=== PATIENT | male | born 1965 | race Caucasian/White ===

== ENCOUNTER 2018-01-12 01:14 | Emergency (ER) | payer BC ==
[2018-01-12] MEDS ORDERED: Albuterol/Ipratropium 3.0-0.5 MG/3 ML Neb Soln NEB ONE (02:17)
--- NOTE | 2018-01-12 02:17 | EDM.PDOC ---
ED HPI GENERAL MEDICAL PROBLEM - General Chief Complaint: Respiratory Problem Stated Complaint: DIFFICULTY BREATHING BAD COUGH Time Seen by Provider: 01/12/18 01:24 Source of Information: Reports: Patient, RN Notes Reviewed History Limitations: Reports: No Limitations - History of Present Illness INITIAL COMMENTS - FREE TEXT/NARRATIVE: The patient states that he has had a cough productive of yellow sputum for the past 10 days, and shortness of breath, with chest heaviness for the past 4 days. He states that he has a hard time breathing. He has shortness of breath at rest, worse with exertion. He states that his cough and shortness of breath are worse if supine. He also notes that he has had chest rattling, also worse if he is supine. No recent fever. The patient states that he had similar symptoms this past summer, and was prescribed an albuterol inhaler, which helped. At the time, he was told that he had seasonal allergies. The patient states that he took some Mucinex tonight, which seemed to make his symptoms worse. He denies trying any other medications. The patient is from [place], in this area for work. Treatments SAFETY ENGINEER: Reports: Other (see below) Other Treatments SAFETY ENGINEER: ventolin inhaler - Related Data Allergies Allergy/AdvReac Type Severity Reaction Status Date / Time tramadol Allergy Stomach Verified 01/12/18 01:24 Upset all pain meds Allergy Nausea and Uncoded 01/12/18 01:24 Vomiting Home Meds: Home Meds Albuterol [Ventolin HFA] 1 - 2 puff INH Q4H PRN #1 mdi 01/12/18 [Rx] Albuterol [Ventolin HFA] 2 puff .XX ASDIRECTED PRN 01/12/18 [History] Lisinopril [Prinivil] 5 mg PO DAILY 01/12/18 [History] amLODIPine Besylate [Amlodipine Besylate] 10 mg PO DAILY 01/12/18 [History] Past Medical History HEENT History: Reports: Impaired Vision Cardiovascular History: Reports: Hypertension Musculoskeletal History: Reports: Osteoarthritis - Past Surgical History GI Surgical History: Reports: Appendectomy, Hernia, Inguinal (left) Musculoskeletal Surgical History: Reports: Amputation (right thumb, partial), Hip Replacement (bilateral) Social & Family History - Family History Family Medical History: Noncontributory - Tobacco Use Smoking Status *Q: Former Smoker Years of Tobacco use: 27 Packs/Tins Daily: 1 Month/Year Tobacco Last Used: Quit 2010 - Caffeine Use Caffeine Use: Reports: Coffee - Alcohol Use Alcohol Use History: Yes Alcohol Use Frequency: Socially - Recreational Drug Use Recreational Drug Use: No - Living Situation & Occupation Living situation: Reports: , with Spouse Occupation: Employed ([employer]) ED ROS GENERAL - Review of Systems Review Of Systems: ROS reveals no pertinent complaints other than HPI. ED EXAM, GENERAL - Physical Exam Exam: See Below Exam Limited By: No Limitations General Appearance: Alert, WD/WN, No Apparent Distress Eye Exam: Bilateral Eye: EOMI, Normal Inspection Ears: Normal External Exam, Hearing Grossly Normal Nose: Normal Inspection, No Blood Throat/Mouth: Normal Inspection, Normal Lips, Normal Voice, No Airway Compromise Head: Atraumatic, Normocephalic Neck: Normal Inspection, Full Range of Motion Respiratory/Chest: No Respiratory Distress, No Accessory Muscle Use, Wheezing ( expiratory throughout, worse if supine). No: Decreased Breath Sounds, Crackles , Rhonchi, Prolonged Expiration Cardiovascular: Normal Peripheral Pulses, Regular Rate, Rhythm, No Edema, No Gallop, No JVD, No Murmur, No Rub Peripheral Pulses: 4+: Radial (L), Radial (R) GI/Abdominal: Normal Bowel Sounds, Soft, Non-Tender, No Organomegaly, No Distention, No Abnormal Bruit, No Mass, Other (Obese) (Male) Exam: Deferred Rectal (Males) Exam: Deferred Back Exam: Normal Inspection, Full Range of Motion, NT Extremities: Normal Inspection, Normal Range of Motion, No Pedal Edema, Normal Capillary Refill Neurological: Alert, Oriented, Normal Cognition, No Motor/Sensory Deficits Psychiatric: Normal Affect Skin Exam: Warm, Dry, Intact, Normal Color, No Rash Course - Vital Signs Last Recorded V/S: Last Vital Signs Temp 36.6 C 01/12/18 01:20 Pulse 96 01/12/18 01:20 Resp 18 01/12/18 01:20 BP 157/109 H 01/12/18 01:20 Pulse Ox 93 L 01/12/18 02:29 - Orders/Labs/Meds Orders: Active Orders 24 hr Category Date Time Status RT Aerosol Therapy [RC] ASDIRECTED Care 01/12/18 02:17 Active Chest 2V [CR] Stat Exams 01/12/18 02:15 Taken Meds: Medications Discontinued Medications Generic Name Dose Route Start Last Admin Trade Name Duke PRN Reason Stop Dose Admin Albuterol/Ipratropium 3 ml 01/12/18 02:17 01/12/18 02:26 Duoneb 3.0-0.5 Mg/3 Ml NEB 01/12/18 02:18 3 ml ONETIME ONE Administration - Re-Assessments/Exams Free Text/Narrative Re-Assessment/Exam: 01/12/18 02:16 The patient has excretory wheezes throughout both of his lung lizarraga, worse if he is supine. This is consistent with acute bronchitis. I have ordered a chest x -ray, but I do not need blood work unless his chest x-ray shows an infiltrate. In the meantime, I will have respiratory therapy treat the patient with a DuoNeb. If his expiratory wheezing improves with a DuoNeb, he may benefit with a prescription for albuterol. 01/12/18 02:44 2-view chest radiograph reviewed. Cardiac silhouette is within normal limits, although the aorta appears to be tortuous. No pulmonary vascular congestion. No pleural effusions. No focal infiltrate. No pneumothorax. Formal read per the Radiologist pending. 01/12/18 02:55 Following a DuoNeb, the patient states that his breathing feels much better, and on auscultation, he still has a few expiratory wheezes, but significantly improved from prior to the DuoNeb. While the patient's history is most consistent with acute bronchitis, the improvement in his breathing with a DuoNeb is more consistent with COPD or asthma. I cannot diagnose COPD or asthma in the emergency department; that requires pulmonary function tests, however, for today's purposes, I will treat the patient with a prescription for an albuterol MDI. The respiratory therapist has already provided the patient with a space chamber, in anticipation of such a prescription. Because of a worse prognosis 2 years after treating COPD with steroids, I am not going to prescribe prednisone. I will refer the patient to Dr. Bennett for follow-up, if needed. Departure - Departure Time of Disposition: 02:56 Disposition: Home, Self-Care 01 Condition: Good Clinical Impression: Reactive airway disease - Discharge Information *PRESCRIPTION DRUG MONITORING PROGRAM REVIEWED*: Not Applicable *COPY OF PRESCRIPTION DRUG MONITORING REPORT IN PATIENT TURNER: Not Applicable Prescriptions: Albuterol [Ventolin HFA] 1 - 2 puff INH Q4H PRN #1 mdi PRN Reason: Shortness Of Breath Instructions: Shortness of Breath, Adult, [id number] Referrals: Renu Bennett MD [Physician] - Forms: ED Department Discharge Additional Instructions: You were seen in the emergency room for a 10-day history of cough and 4 days of shortness of breath, worse with exertion. Workup in the ER included a chest x-ray, which was normal. You do not have pneumonia. It is unclear what the cause of your symptoms is. You may have acute bronchitis , COPD, or asthma. A prescription for an albuterol MDI has been [facility] to [facility] , [address] [place] [place] [address] located just south and across the [address] from [facility]. They will be open between noon and 4:00 PM today. Use the inhaler with the space chamber, as instructed, as often as necessary, however, if you require it more often than every 4 hours, you need to be seen by a doctor. Follow-up with Dr. Renu Bennett as a primary care physician, if needed. If any other problems, please do not hesitate to return to the ER. - My Orders Last 24 Hours: My Active Orders 01/12/18 02:15 Chest 2V [CR] Stat 01/12/18 02:17 RT Aerosol Therapy [RC] ASDIRECTED - Assessment/Plan Last 24 Hours: My Active Orders 01/12/18 02:15 Chest 2V [CR] Stat 01/12/18 02:17 RT Aerosol Therapy [RC] ASDIRECTED
--- NOTE | 2018-01-13 07:13 | CR ---
Chest: Two views of the chest were obtained. Comparison: No prior chest x-ray. Heart size is normal. Tortuous thoracic aorta is seen. Lungs are clear. Bony structures show scattered disc space narrowing throughout the spine with minimal scattered endplate osteophytes. Impression: 1. Incidental findings. Nothing acute is appreciated. Diagnostic code #2
== END 2018-01-12 03:12 | disposition home or self-care (01) ==
LOC: JD.ED 01:14
DX: J45.909 Unspecified asthma, uncomplicated (principal); I10 Essential (primary) hypertension; Z87.891 Personal history of nicotine dependence; Z79.899 Other long term (current) drug therapy; Z88.6 Allergy status to analgesic agent
CPT/HCPCS: 71046; 71046-26; 94640; 99285-25; J7620-GY